=== PATIENT | female | born 1975 | race African-American/Black ===

== ENCOUNTER 2017-05-11 15:05 | Emergency (ER) | payer MEDICAID ==
[~2017-05-11] VITALS: Ht 165.1 cm; Wt 58.6 kg
[2017-05-11 15:19] VITALS: BP 135/94
[2017-05-11 15:28] LABS: GLUCOSE,POINT OF CARE 114 MG/DL (70-110)
[2017-05-11] MEDS ORDERED: PERCT PO (15:31)
[2017-05-11 17:38] LABS: APPEARANCE,URINE CLEAR (CLEAR); GLUCOSE, URINE (UA) NEGATIVE (NEGATIVE); KETONES,URINE NEGATIVE (NEGATIVE); LEUKOCYTE ESTERASE ,URINE TRACE (NEGATIVE); PROTEIN,URINE NEGATIVE (NEGATIVE)
[2017-05-11 17:42] LABS: ADD UA MICROSCOPIC YES; OCCULT BLOOD,URINE MODERATE (NEGATIVE); SQUAMOUS EPITHELIAL CELL,UR Few /LPF (None Seen)
== END 2017-05-11 17:38 | disposition left against medical advice (07) ==
LOC: EMS 15:06
DX: R10.32 Left lower quadrant pain (principal); Z53.21 Procedure and treatment not carried out due to patient leaving prior to being seen by health care provider
CPT/HCPCS: 82962

== ENCOUNTER 2022-12-29 10:16 | Emergency (ER) | payer MEDICAID, OTHER ==
[~2022-12-29] VITALS: Ht 165.1 cm; Wt 55.0 kg
[~2022-12-29 10:16] MED LIST: PERCT PO
[2022-12-29 11:15] VITALS: BP 127/73
== END 2022-12-29 11:33 | disposition home or self-care (01) ==
LOC: EMS 10:18
DX: L25.3 Unspecified contact dermatitis due to other chemical products (principal); F12.90 Cannabis use, unspecified, uncomplicated; Z98.890 Other specified postprocedural states
CPT/HCPCS: 99281; Z7502